=== PATIENT | female | born 1940 | race African-American/Black ===

== ENCOUNTER 2019-02-11 18:43 | Inpatient (IN) | payer OTHER | END 2019-02-13 18:19 | disposition home or self-care (01) | LOC: J4W 02-12 05:28 → JER 18:43 → JERBED 22:55 → J4S 02-12 18:44 ==

== ENCOUNTER 2024-09-16 10:57 | Inpatient (IN) | payer OTHER ==
[2024-09-16] MEDS ORDERED: methylPREDNISolone NA SUCC 125 MG/2 ML VIAL ONE ×2 (11:11→11:16)
[2024-09-16] MEDS ORDERED: EPINEPHrine/PF 1 MG/1 ML (1:1,000) AMPULE ONE (11:11)
[2024-09-16] MEDS ORDERED: RAPID SEQUENCE INTUBATION KIT NR ONE (11:14)
[2024-09-16] MEDS ORDERED: LIDOCAINE VISCOUS 2% ORAL/TOP 15 ML UNIT-DOSE CUP ONE (11:15)
[2024-09-16] MEDS ORDERED: BENZOCAINE 20% 57 GM BOTTLE TP ONE (11:20)
[2024-09-16] MEDS ORDERED: MIDAZOLAM HCL 2 MG/2 ML SINGLE DOSE VIAL ONE (11:23)
[2024-09-16] MEDS ORDERED: FENTANYL CITRATE/PF 50 MCG/ML VIAL ONE (11:23)
[2024-09-16] MEDS ORDERED: IPRATROPIUM BR 0.02% 0.5 MG/2.5 ML VIAL.NEB. NEB ONE (11:24)
[2024-09-16] MEDS: methylPREDNISolone NA SUCC 125 MG/2 ML VIAL IVPUSH ONE (11:38)
[2024-09-16 12:26] LABS: BASO % 0.8 % (0-2.0); EOS % 2.5 % (0-4.5); HEMATOCRIT 39.4 % (32.4-45.2); HEMOGLOBIN 12.7 GM/dL (10.7-15.3); LYMPH % 16.6 % (8-40); MCH 27.1 pg (25.7-33.7); MCHC 32.3 g/dl (32.0-36.0); MEAN PLT VOLUME 8.5 fl (7.5-11.1); MONO % 4.9 % (3.8-10.2); NEUT % 75.2 % (42.8-82.8); PLATELET COUNT 283 10^3/uL (134-434); RBC 4.69 M/mm3 (3.60-5.2); RDW 16.2 % (11.6-15.6); WHITE BLOOD COUNT 6.8 K/mm3 (4.0-10.0)
[2024-09-16] MEDS: MIDAZOLAM HCL 2 MG/2 ML SINGLE DOSE VIAL IVPUSH ONE (12:27)
[2024-09-16 12:35] LABS: INR 1.01 (0.83-1.09); PROTHROMBIN TIME (PATIENT) 11.6 SEC (9.7-13.0)
[2024-09-16 12:38] LABS: ACTIVATED PTT 26.6 SECONDS (25.2-36.5)
[2024-09-16 12:49] LABS: POTASSIUM 3.4 mmol/L (3.5-5.1)
[2024-09-16 12:50] LABS: BLOOD UREA NITROGEN 13.2 mg/dL (7-18); CALCIUM 8.2 mg/dL (8.5-10.1)
[2024-09-16 12:51] LABS: ALBUMIN 3.6 g/dl (3.4-5.0)
[2024-09-16 12:55] LABS: CREATININE 1.1 mg/dL (0.55-1.3)
[2024-09-16 12:56] LABS: BILIRUBIN,TOTAL 0.4 mg/dL (0.2-1); TOT PROT 7.4 g/dl (6.4-8.2)
[2024-09-16] MEDS: EPINEPHrine 1:1,000 1,000 MCG/ML ML IV ONE (14:18)
[2024-09-16] MEDS: DEXAMETHASONE SOD PHOSPHATE 4 MG/1 ML VIAL IVPUSH SCH (15:59)
[2024-09-16] MEDS: hydrALAZINE HCL 20 MG/ML VIAL IM ONE (15:59)
[2024-09-16] MEDS: INSULIN ASPART SLIDING SCALE (NOVOLOG) 1 VIAL SQ SCH (16:06)
[2024-09-16] MEDS: MUPIROCIN 2% TOPICAL OINTMENT FOR DECOLONIZATION NS SCH (16:17)
[2024-09-16 17:52] VITALS: BMI 29.2
[2024-09-16] MEDS: CHLORHEXIDINE GLUCONATE 4% CLEANSER FOR DECOLONIZATION TP SCH (21:53)
[2024-09-16] MEDS ORDERED: PATIENT'S OWN MEDICATION (NON-FORMULARY) (Atenolol [Tenormin -] 100 MG Tablet) PO SCH (22:00)
[2024-09-16] MEDS ORDERED: ATORVASTATIN CA 80 MG TABLET (FP) PO SCH (22:00)
[2024-09-16] MEDS ORDERED: CLONIDINE HCL 0.2 MG PO SCH (22:00)
[2024-09-16] MEDS: FAMOTIDINE 20 MG/50 ML IVPB 20 MG/50 ML MG IVPB SCH (22:08)
[2024-09-17] MEDS: DEXAMETHASONE SOD PHOSPHATE 4 MG/1 ML VIAL IVPUSH SCH (00:58)
[2024-09-17] MEDS: hydrALAZINE HCL 20 MG/ML VIAL IVPUSH PRN (01:12)
[2024-09-17] MEDS: ONDANSETRON 4 MG/2 ML VIAL IVPUSH ONE (02:52)
[2024-09-17 07:47] LABS: HEMATOCRIT 38.7 % (32.4-45.2); HEMOGLOBIN 12.2 GM/dL (10.7-15.3); MCHC 31.7 g/dl (32.0-36.0); MEAN CELL VOLUME 85.3 fl (80-96); MEAN PLT VOLUME 9.3 fl (7.5-11.1); PLATELET COUNT 308 10^3/uL (134-434); RBC 4.53 M/mm3 (3.60-5.2); RDW 16.1 % (11.6-15.6); WHITE BLOOD COUNT 8.2 K/mm3 (4.0-10.0)
[2024-09-17 08:12] LABS: CHLORIDE 106 mmol/L (98-107); POTASSIUM 3.9 mmol/L (3.5-5.1); SODIUM 141 mmol/L (136-145)
[2024-09-17 08:25] LABS: ALBUMIN 3.2 g/dl (3.4-5.0); ANION GAP 10 mmol/L (4-13); BLOOD UREA NITROGEN 16.2 mg/dL (7-18); CALCIUM 7.9 mg/dL (8.5-10.1); CO2 25 mmol/L (21-32); GLUCOSE,RANDOM 161 mg/dL (74-106)
[2024-09-17 08:26] LABS: BILIRUBIN,TOTAL 0.3 mg/dL (0.2-1); SGPT/ALT 13 U/L (13-61)
[2024-09-17 08:28] LABS: ALK PHOS 97 U/L (45-117); CREATININE 0.8 mg/dL (0.55-1.3); SGOT/AST 18 U/L (15-37); TOT PROT 6.8 g/dl (6.4-8.2)
[2024-09-17 08:29] LABS: PHOSPHOROUS 3.8 mg/dL (2.5-4.9)
[2024-09-17 08:33] LABS: MAGNESIUM 0.9 mg/dL (1.8-2.4)
[2024-09-17] MEDS: LEVOTHYROXINE SODIUM 100 MCG 5 ML VIAL IVPUSH SCH (09:23)
[2024-09-17] MEDS: ENOXAPARIN NA (PORCINE) 40 MG/0.4 ML DISP.SYRIN SQ SCH (09:26)
[2024-09-17] MEDS: MAGNESIUM 2GM/50ML STERILE WATER IVPB IVPB ONE ×2 (09:45→13:06)
[2024-09-17] MEDS ORDERED: amLODIPine BESYLATE 10 MG TABLET (FP) PO SCH (10:00)
[2024-09-17] MEDS ORDERED: LEVOTHYROXINE SODIUM 100 MCG 5 ML VIAL IVPUSH SCH (10:00)
[2024-09-17] MEDS ORDERED: CELECOXIB 200 MG CAPSULE PO SCH (10:00)
[2024-09-17] MEDS ORDERED: LEVOTHYROXINE NA 50 MCG TABLET (FP) PO SCH (10:00)
[2024-09-17 10:20] LABS: PLATELET ESTIMATE ADEQUATE
[2024-09-17] MEDS: diphenhydrAMINE HCL 25 MG CAPSULE (FP) PO SCH (10:55)
[2024-09-17] MEDS: ATENOLOL 50 MG TABLET (FP) PO SCH (21:14)
[2024-09-17] MEDS: ATORVASTATIN CA 40 MG TABLET (FP) PO SCH (21:14)
[2024-09-17] MEDS: cloNIDine HCL 0.1 MG TABLET PO SCH (21:15)
[2024-09-18] MEDS: LEVOTHYROXINE NA 50 MCG TABLET (FP) PO SCH (06:01)
[2024-09-18] MEDS ORDERED: amLODIPine BESYLATE 5 MG TABLET (FP) PO SCH (10:00)
[2024-09-18] MEDS: ASPIRIN COATED 81 MG TABLET.EC PO SCH (10:25)
[2024-09-18] MEDS: amLODIPine BESYLATE 5 MG TABLET (FP) PO SCH (10:26)
[2024-09-18] MEDS: FUROSEMIDE 40 MG TABLET (FP) PO SCH (10:26)
[2024-09-18] MEDS: ATORVASTATIN CA 40 MG TABLET (FP) PO SCH (21:50)
[2024-09-18] MEDS: ATENOLOL 50 MG TABLET (FP) PO SCH (21:50)
[2024-09-18] MEDS: cloNIDine HCL 0.1 MG TABLET PO SCH (21:50)
[2024-09-18] MEDS: FAMOTIDINE 20 MG/50 ML IVPB 20 MG/50 ML MG IVPB SCH (21:50)
[2024-09-18] MEDS: INSULIN ASPART SLIDING SCALE (NOVOLOG) 1 VIAL SQ SCH (21:57)
[2024-09-19] MEDS: DEXAMETHASONE SOD PHOSPHATE 4 MG/1 ML VIAL IVPUSH SCH (00:27)
[2024-09-19] MEDS: LEVOTHYROXINE NA 50 MCG TABLET (FP) PO SCH (06:33)
[2024-09-19] MEDS: ENOXAPARIN NA (PORCINE) 40 MG/0.4 ML DISP.SYRIN SQ SCH (11:36)
[2024-09-19] MEDS: amLODIPine BESYLATE 5 MG TABLET (FP) PO SCH (11:37)
[2024-09-19] MEDS: FUROSEMIDE 40 MG TABLET (FP) PO SCH (11:37)
[2024-09-19] MEDS: ASPIRIN COATED 81 MG TABLET.EC PO SCH (11:37)
[2024-09-19] MEDS: FAMOTIDINE 10 MG TABLET PO ONE (12:00)
[2024-09-19] MEDS: FAMOTIDINE 20 MG TABLET PO ONE (12:08)
[2024-09-19 12:14] VITALS: BP 131/55; PULSE 55; RESP 19; TEMP 98.8
[2024-09-20] MEDS ORDERED: DEXAMETHASONE SOD PHOSPHATE 10 MG/1 ML VIAL PO SCH (10:00)
== END 2024-09-19 14:30 | disposition home or self-care (01) | DRG 916 ==
LOC: JER 10:57 → JERBED 12:10 → JICU 14:38 → J8W 09-18 19:26
PROVIDERS: ADMIT Internal Medicine Pulmonary Disease; ATTEND Nurse Practitioner Acute Care
DX: T78.3XXA Angioneurotic edema, initial encounter (principal); I11.0 Hypertensive heart disease with heart failure; E11.9 Type 2 diabetes mellitus without complications; I25.10 Atherosclerotic heart disease of native coronary artery without angina pectoris; E78.5 Hyperlipidemia, unspecified; K21.9 Gastro-esophageal reflux disease without esophagitis; I50.9 Heart failure, unspecified; K22.2 Esophageal obstruction; G47.33 Obstructive sleep apnea (adult) (pediatric); Z85.41 Personal history of malignant neoplasm of cervix uteri
CPT/HCPCS: 36415; 80053; 82962; 83036; 83520; 83735; 84100; 85025; 85610; 85730; 86850; 86870; 86880; 86900; 86901; 86902; 87481; 93005; 93010; 99291